=== PATIENT | female | born 1960 | race Caucasian/White ===

== ENCOUNTER 2021-07-23 16:05 | Outpatient (CLI) | payer BC, SELFPAY ==
[2021-07-23] MEDS: 0.9% Saline Lock 10 ML Syringe IV (16:16)
[2021-07-23 16:18] VITALS: BP 128/91; PULSE 90; RESP 16; TEMP 36.9; O2SAT 100; BMI 26.7
[2021-07-23 17:14] VITALS: BP 128/95; PULSE 73; RESP 16; TEMP 37.1; O2SAT 97
[2021-07-23 18:14] VITALS: BP 139/92; PULSE 70; RESP 16; TEMP 36.8; O2SAT 98
== END 2021-07-23 18:27 | disposition home or self-care (01) ==
LOC: ICUOUT 16:05 → MS2 16:06
PROVIDERS: Referring Provider Nurse Practitioner Acute Care; Visit Provider Nurse Practitioner Acute Care
DX: Z23 Encounter for immunization (principal); U07.1 COVID-19
CPT/HCPCS: J7050; M0243; A4216; Q0244